=== PATIENT | male | born 1955 | race American Indian/Alaskan Native ===

== ENCOUNTER 2018-03-04 14:59 | Observation (INO) | payer MEDICARE ==
--- NOTE | 2018-03-04 17:42 | Emergency Department Report ---
HPI - General Chief Complaint: Syncope Time Seen by Provider: 03/04/18 17:26 - [facility] HPI: Room 10 The patient is a 62-year-old male presents with the chief complaint of syncope. The patient states he was sitting down when he began to feel dizzy and lost consciousness. Patient denies palpitations, chest pain, shortness of breath, nausea vomiting or pain of any type. Patient currently states he feels "pretty good." Location: [facility] Duration: Just prior to arrival Quality: Dizziness, syncope Severity: Moderate Modifying factors: [see above] Context: [see above] Mode of transportation: [not driving] ED Past Medical Hx - Past Medical History Hx Hypertension: Yes Hx Diabetes: Yes Hx Psychiatric Treatment: Yes Additional medical history: depression. bipolar. Schizophrenia - Surgical History Past Surgical History?: No - Family History Family history: no significant - Social History Smoking Status: Current Every Day Smoker (1/7 per day) Substance Use Type: None - Medications Home Medications: Home Medications Medication Instructions Recorded Confirmed Last Taken Type Ibuprofen [Motrin] 600 mg PO Q8H PRN #60 tablet 12/19/13 Unknown Rx Sulfamethoxazole/Trimethoprim 1 each PO BID #20 tablet 12/19/13 Unknown Rx [Bactrim Ds] ED Review of Systems ROS: Stated complaint: SYNCOPE Other details as noted in HPI Constitutional: no symptoms reported Eyes: denies: eye pain ENT: denies: throat pain Respiratory: denies: shortness of breath Cardiovascular: denies: chest pain, palpitations Endocrine: denies: unexplained weight gain Gastrointestinal: denies: abdominal pain, nausea, vomiting Genitourinary: denies: dysuria Musculoskeletal: denies: back pain Skin: denies: change in color Neurological: denies: headache Physical Exam - Physical Exam Vital Signs: Vital Signs 03/04/18 17:11 Temperature 98.4 F Pulse Rate 50 L Respiratory 18 Rate Blood Pressure 164/77 Blood Pressure 164/77 [Left] O2 Sat by Pulse 100 Oximetry Physical Exam: GENERAL: The patient is well-developed well-nourished male sitting on stretcher not appearing to be in acute distress. [] HEENT: Normocephalic. Atraumatic. (Strabismus: Chronic) . Patient has moist mucous membranes. NECK: Supple. Trachea midline CHEST/LUNGS: Clear to auscultation. There is no respiratory distress noted. HEART/CARDIOVASCULAR: Regular. There is no tachycardia. There is no gallop rub or murmur. ABDOMEN: Abdomen is soft, nontender. Patient has normal bowel sounds. There is no abdominal distention. SKIN: There is no rash. There is no edema. There is no diaphoresis. NEURO: The patient is awake, alert, and oriented. The patient is cooperative. The patient has no focal neurologic deficits. The patient has normal speech. Cranial nerves II through XII grossly intact, no drift MUSCULOSKELETAL: There is no evidence of acute injury. ED Course Vital Signs 03/04/18 17:11 Temperature 98.4 F Pulse Rate 50 L Respiratory 18 Rate Blood Pressure 164/77 Blood Pressure 164/77 [Left] O2 Sat by Pulse 100 Oximetry ED Medical Decision Making - Lab Data Result diagrams: 03/04/18 18:32 03/04/18 18:32 Laboratory Tests 03/04/18 03/04/18 03/04/18 18:32 18:32 18:32 WBC 5.4 RBC 4.21 Hgb 12.7 Hct 37.1 MCV 88 MCH 30 MCHC 34 RDW 13.5 Plt Count 173 Lymph % (Auto) 19.6 [place] % (Auto) 3.2 Eos % (Auto) 0.5 Baso % (Auto) 1.4 Lymph # 1.1 L [place] # 0.2 Eos # 0.0 Baso # 0.1 Seg Neutrophils % 75.3 H Seg Neutrophils # 4.1 PT 13.2 INR 0.95 APTT 32.2 Sodium 138 Potassium 4.8 Chloride 97.8 L Carbon Dioxide 28 Anion Gap 17 BUN 17 Creatinine 1.3 Estimated GFR > 60 BUN/Creatinine Ratio 13 Glucose 99 Calcium 9.0 Total Creatine Kinase 75 CK-MB (CK-2) 1.3 CK-MB (CK-2) Rel Index 1.7 Troponin T < 0.010 TSH Free T4 Plasma/Serum Alcohol 03/04/18 03/04/18 18:32 18:32 WBC RBC Hgb Hct MCV MCH MCHC RDW Plt Count Lymph % (Auto) [place] % (Auto) Eos % (Auto) Baso % (Auto) Lymph # [place] # Eos # Baso # Seg Neutrophils % Seg Neutrophils # PT INR APTT Sodium Potassium Chloride Carbon Dioxide Anion Gap BUN Creatinine Estimated GFR BUN/Creatinine Ratio Glucose Calcium Total Creatine Kinase CK-MB (CK-2) CK-MB (CK-2) Rel Index Troponin T TSH 1.260 Free T4 1.04 Plasma/Serum Alcohol < 0.01 - EKG Data -: EKG Interpreted by Me EKG shows normal: sinus rhythm Rate: bradycardia (50 bpm) - EKG Data When compared to previous EKG there are: previous EKG unavailable Interpretation: nonspecific ST-T wave cary (T-wave inversion in leads 2, 3, aVF, with biphasic T waves in leads V4, V5, V6) - Radiology Data Radiology results: report reviewed (chest x-ray, CT head), image reviewed ( chest x-ray) interpreted by me: Chest x-ray-no focal infiltrates, no pneumothorax [address] [address] XRay Report Signed Patient: ROSAS HODGES MR#: [id number] : 1954 Acct:[id number] Age/Sex: 62 / M ADM Date: 03/04/18 Loc: ED Attending Dr: Ordering Physician: CHERRY MAYES MD Date of Service: 03/04/18 Procedure(s): XR chest 1V ap Accession Number(s): [id number] cc: CHERRY MAYES MD Fluoro Time In Minutes: FINAL REPORT EXAM: XR CHEST 1V AP HISTORY: syncope TECHNIQUE: AP portable view of the chest PRIORS: None. FINDINGS: Lines, tubes, and devices: N/ A Lungs and pleura: Trachea is normal in position. Lungs are clear of infiltrate , pleural effusion, vascular congestion, or pneumothorax. Cardiomediastinal silhouette: Cardiac and mediastinal silhouettes are unremarkable. Other: Bony structures are intact. IMPRESSION: No acute cardiopulmonary process seen. Transcribed By: [facility] Dictated By: MAHI SALGUERO MD Electronically Authenticated By: MAHI SALGUERO MD Signed Date/Time: 03/04/181822 DD/DT: 02/14 TD/TT: 03/04/181822 [address] [address] Cat Scan Report Signed Patient: ROSAS HODGES MR#: [id number] : Acct:[id number] Age/Sex: 62 / M ADM Date: 03/04/18 Loc: ED Attending Dr: Ordering Physician: CHERRY MAYES MD Date of Service: 03/04/18 Procedure(s): CT head/brain wo con Accession Number(s): [id number] cc: CHERRY MAYES MD FINAL REPORT EXAM: CT HEAD/BRAIN WO CON HISTORY: syncope TECHNIQUE: Standard unenhanced CT of the head at 5.0 millimeter axial increments. PRIORS: None. FINDINGS: The ventricular system is normal in size and configuration. There is no evidence for parenchymal volume loss. There is no evidence for mass lesion, mass effect, midline shift, acute intracranial hemorrhage, or acute ischemia/ infarction. No evidence for acute skull fracture is seen. No abnormality in the overlying scalp soft tissues is seen. Visualized paranasal sinuses are clear. There is an incidental 1.3 x 0.9 cm subcutaneous cystic focus overlying the left cheek (axial image 1). This is likely an entity of the skin such as sebaceous cyst. IMPRESSION: No acute intracranial process noted. Subcutaneous cystic focus overlying the left cheek, likely is an entity of the skin such as sebaceous cyst. Transcribed By: [facility] Dictated By: MAHI SALGUERO MD Electronically Authenticated By: MAHI SALGUERO MD Signed Date/Time: 03/04/181843 DD/ 43 TD/TT: 03/04/181843 - Differential Diagnosis syncope, dysrhythmia, ICH, ACS, rhabdomyolysis, Critical care attestation.: If time is entered above; I have spent that time in minutes in the direct care of this critically ill patient, excluding procedure time. ED Disposition Clinical Impression: Syncope Disposition: OP ADMIT IP TO THIS HOSP Is pt being admited?: Yes Does the pt Need Aspirin: Yes Condition: Fair Instructions: Syncope (ED) Referrals: PRIMARY CARE, [Primary Care Provider] - 3-5 Days Time of Disposition: 19:57 (hospitalist paged (Dr Baig))
--- NOTE | 2018-03-04 18:27 | XRay Report ---
FINAL REPORT EXAM: XR CHEST 1V AP HISTORY: syncope TECHNIQUE: AP portable view of the chest PRIORS: None. FINDINGS: Lines, tubes, and devices: N/A Lungs and pleura: Trachea is normal in position. Lungs are clear of infiltrate, pleural effusion, vascular congestion, or pneumothorax. Cardiomediastinal silhouette: Cardiac and mediastinal silhouettes are unremarkable. Other: Bony structures are intact. IMPRESSION: No acute cardiopulmonary process seen.
--- NOTE | 2018-03-04 18:48 | Cat Scan Report ---
FINAL REPORT EXAM: CT HEAD/BRAIN WO CON HISTORY: syncope TECHNIQUE: Standard unenhanced CT of the head at 5.0 millimeter axial increments. PRIORS: None. FINDINGS: The ventricular system is normal in size and configuration. There is no evidence for parenchymal volume loss. There is no evidence for mass lesion, mass effect, midline shift, acute intracranial hemorrhage, or acute ischemia/ infarction. No evidence for acute skull fracture is seen. No abnormality in the overlying scalp soft tissues is seen. Visualized paranasal sinuses are clear. There is an incidental 1.3 x 0.9 cm subcutaneous cystic focus overlying the left cheek (axial image 1). This is likely an entity of the skin such as sebaceous cyst. IMPRESSION: No acute intracranial process noted. Subcutaneous cystic focus overlying the left cheek, likely is an entity of the skin such as sebaceous cyst.
[2018-03-04 18:54] LABS: Basophils # (Auto) 0.1 K/mm3 (0.0-0.1); Basophils % (Auto) 1.4 % (0.0-1.8); Eosinophils % (Auto) 0.5 % (0.0-4.3); Hematocrit 37.1 % (35.5-45.6); Hemoglobin 12.7 gm/dl (11.8-15.2); Lymphocytes # (Auto) 1.1 K/mm3 (1.2-5.4); Lymphocytes % (Auto) 19.6 % (13.4-35.0); Mean Corpuscular HGB Conc 34 % (32-34); Mean Corpuscular Hemoglobin 30 pg (28-32); Mean Corpuscular Volume 88 fl (84-94); Monocytes # (Auto) 0.2 K/mm3 (0.0-0.8); Monocytes % (Auto) 3.2 % (0.0-7.3); Platelet Count 173 K/mm3 (140-440); Red Blood Count 4.21 M/mm3 (3.65-5.03); Red Cell Distribution Width 13.5 % (13.2-15.2)
[2018-03-04 19:06] LABS: INR 0.95 (0.87-1.13)
[2018-03-04 19:07] LABS: Partial Thromboplastin Time 32.2 Sec. (24.2-36.6)
[2018-03-04 19:12] LABS: Creatine Kinase MB 1.3 ng/mL (0.0-4.0)
[2018-03-04 19:16] LABS: BUN/Creatinine Ratio 13; Blood Urea Nitrogen 17 mg/dL (9-20); Hemolysis Index 4
[2018-03-04 19:24] LABS: Free T4 (Free Thyroxine) 1.04 ng/dL (0.76-1.46)
[2018-03-04] MEDS ORDERED: NACL 0.9% 1000 ML 1,000 ML IV ONE (19:28)
[2018-03-04] MEDS ORDERED: ASPIRIN PO ONE (19:57)
[2018-03-04 20:40] LABS: Bilirubin,Urine NEG (Negative); Blood,Urine NEG (Negative); Color,Urine Yellow (Yellow); Hyaline Casts,Urine 4 /LPF; Mucus,Urine FEW /HPF; Protein,Urine <15 mg/dL mg/dL (Negative); WBC,Urine < 1.0 /HPF (0.0-6.0)
--- NOTE | 2018-03-04 21:40 | History and Physical Report ---
History of Present Illness Date of examination: 03/04/18 Date of admission: 03/04/18 Chief complaint: Syncope History of present illness: Patient is a 62-year-old gentleman who lives in a personal skilled nursing with a history of mild mental retardation, hypertension and schizophrenia started complaining of dizziness shortly after his regular edema. He passed out immediately thereafter. EMS was called in. Patient is well noted to have spasms on the rise bilaterally. There was no jerking movements. Patient was therefore brought to the emergency department. Initial episode of syncope lasted for less than 1 minute per his caregiver will give most of the history. Patient was brought to the emergency department with CBC and CMP were normal. Chest x-ray, CT scan of the brain within normal. Admission was therefore requested. Past History Past Medical History: hypertension, hyperlipidemia, other (schizophrenia and bipolar disorder with mild mental retardation) Past Surgical History: No surgical history Social history: smoking, alcohol abuse. denies: prescription drug abuse, IV drug use Family history: CAD Medications and Allergies Allergies Allergy/AdvReac Type Severity Reaction Status Date / Time No Known Allergies Allergy Unverified 12/19/13 16:23 Home Medications Medication Instructions Recorded Confirmed Last Taken Type Ibuprofen [Motrin] 600 mg PO Q8H PRN #60 tablet 12/19/13 03/04/18 Unknown Rx Sulfamethoxazole/Trimethoprim 1 each PO BID #20 tablet 12/19/13 03/04/18 Unknown Rx [Bactrim Ds] FLUoxetine HCL [Fluoxetine HCl] 10 mg PO QAM 03/04/18 03/04/18 Unknown History Lisinopril [Zestril TAB] 30 mg PO QDAY 03/04/18 03/04/18 Unknown History cloNIDine [Catapres] 0.1 mg PO BID 03/04/18 03/04/18 Unknown History risperiDONE [RisperiDONE] 3 mg PO QHS 03/04/18 03/04/18 Unknown History traZODone [Desyrel] 100 mg PO QHS 03/04/18 03/04/18 Unknown History Active Meds: Active Medications Heparin Sodium (Porcine) (Heparin) 5,000 unit SUB-Q Q12HR MIA Exam - Constitutional Vitals: Temp Pulse Resp BP Pulse Ox 98.7 F 74 16 185/74 100 03/04/18 20:00 03/04/18 20:00 03/04/18 20:00 03/04/18 20:00 03/04/18 20:00 Results - Labs CBC & Chem 7: 03/04/18 18:32 03/04/18 18:32 Labs: Abnormal lab results 03/04/18 03/04/18 Range/Units 18:32 18:32 Lymph # 1.1 L (1.2-5.4) K/mm3 Seg Neutrophils % 75.3 H (40.0-70.0) % Chloride 97.8 L (98-107) mmol/L Assessment and Plan Assessment Syncope from Autonomic dysfunction Hypertension, bipolar disorder, history of schizophrenia. Plan Admitted to telemetry Carotid Doppler Orthostatic measurements Optimize blood pressure control Continue with medication for mental health Physical prophylaxis with Lovenox and GI with Pepcid spent in patient care. Laboratory data
[2018-03-04] MEDS ORDERED: CATAPRES PO ONE (22:00)
[2018-03-04] MEDS ORDERED: CATAPRES ONE ×2 (22:01→23:10)
[2018-03-04] MEDS: HEPARIN SUB-Q SCH (22:18)
[2018-03-04] MEDS ORDERED: HEPARIN ONE (22:18)
[2018-03-04] MEDS: CATAPRES PO SCH (23:10)
[2018-03-05] MEDS: RisperDAL PO SCH ×2 (01:20→22:08)
[2018-03-05] MEDS: DESYREL PO SCH ×2 (01:20→21:50)
[2018-03-05 05:39] LABS: Basophils % (Auto) 1.1 % (0.0-1.8); Eosinophils # (Auto) 0.1 K/mm3 (0.0-0.4); Hemoglobin 11.6 gm/dl (11.8-15.2); Lymphocytes # (Auto) 1.3 K/mm3 (1.2-5.4); Lymphocytes % (Auto) 30.8 % (13.4-35.0); Mean Corpuscular HGB Conc 34 % (32-34); Mean Corpuscular Hemoglobin 30 pg (28-32); Mean Corpuscular Volume 88 fl (84-94); Monocytes # (Auto) 0.2 K/mm3 (0.0-0.8); Platelet Count 168 K/mm3 (140-440); Red Blood Count 3.86 M/mm3 (3.65-5.03); Red Cell Distribution Width 13.6 % (13.2-15.2)
[2018-03-05 06:02] LABS: INR 0.98 (0.87-1.13)
[2018-03-05 06:09] LABS: Alanine Aminotransferase 5 units/L (7-56); Albumin 3.8 g/dL (3.9-5); BUN/Creatinine Ratio 14; Blood Urea Nitrogen 14 mg/dL (9-20); Calcium 8.7 mg/dL (8.4-10.2); Hemolysis Index 8
[2018-03-05] MEDS: PROzac PO SCH (09:55)
[2018-03-05] MEDS: HEPARIN SUB-Q SCH ×2 (09:56→21:51)
[2018-03-05] MEDS: ZESTRIL PO SCH (09:56)
[2018-03-05] MEDS: CATAPRES PO SCH ×2 (09:56→21:50)
[2018-03-05] MEDS ORDERED: NON-FORMULARY (Lisinopril [Zestril Tab] 30 MG) PO SCH (10:00)
--- NOTE | 2018-03-05 16:20 | Progress Note ---
Assessment and Plan Assessment and plan: Patient is a 62-year-old gentleman who lives in a personal fci with a history of mild mental retardation, hypertension and schizophrenia started complaining of dizziness shortly after his regular edema. He passed out immediately thereafter. EMS was called in. Patient is well noted to have spasms on the rise bilaterally. There was no jerking movements. Patient was therefore brought to the emergency department. Initial episode of syncope lasted for less than 1 minute per his caregiver will give most of the history. Patient was brought to the emergency department with CBC and CMP were normal. Chest x-ray, CT scan of the brain within normal. Admission was therefore requested. Past History Past Medical History: hypertension, hyperlipidemia, other (schizophrenia and bipolar disorder with mild mental retardation) Syncope from Autonomic dysfunction Htn urgency bipolar disorder, history of schizophrenia. Plan Admitted to telemetry Carotid Doppler optimize bp meds Optimize blood pressure control Continue with medication for mental health Physical prophylaxis with Lovenox and GI with Pepcid spent in patient care. Laboratory data History Interval history: Denies any additional episodes of syncope Review of systems Constitutional: No fevers, no malaise, no joint pains CVS: No chest pain, no orthopnea, no dyspnea on exertion, no pedal edema GI: No abdominal pain, no diarrhea, no vomiting, no constipation Respiratory: No shortness of breath, no wheezing, no coughing Hospitalist Physical - Physical exam Narrative exam: General.: Appears well, no distress, nontoxic HEENT: Moist mucous membranes, extraocular muscles intact, no lymphadenopathy Neck: supple Cardiac: S1-S2 heard Lungs: clear to auscultation bilaterally Abdomen: soft , nontender, nondistended, bowel sounds positive Extremities: no edema clubbing or cyanosis Skin: no rash or lesions Neurologic: no gross focal deficits, patient is mentally retarded, has basic understanding of his illness. But lacks higher level cognitive skills Psych: Calm and cooperative - Constitutional Vitals: Temp Pulse Resp BP Pulse Ox 98.8 F 69 19 122/66 97 03/05/18 12:16 03/05/18 12:16 03/05/18 12:16 03/05/18 12:16 03/05/18 12:16 Results - Labs CBC & Chem 7: 03/05/18 04:44 03/05/18 04:44 Labs: Laboratory Last Values WBC 4.3 K/mm3 (4.5-11.0) L 07/07/18 04:44 RBC 3.86 M/mm3 (3.65-5.03) 03/05/18 04:44 Hgb 11.6 gm/dl (11.8-15.2) L 03/05/18 04:44 Hct 34.0 % (35.5-45.6) L 03/05/18 04:44 MCV 88 fl (84-94) 03/05/18 04:44 MCH 30 pg (28-32) 03/05/18 04:44 MCHC 34 % (32-34) 03/05/18 04:44 RDW 13.6 % (13.2-15.2) 03/05/18 04:44 Plt Count 168 K/mm3 (140-440) 03/05/18 04:44 Lymph % (Auto) 30.8 % (13.4-35.0) 03/05/18 04:44 [place] % (Auto) 5.0 % (0.0-7.3) 03/05/18 04:44 Eos % (Auto) 3.0 % (0.0-4.3) 03/05/18 04:44 Baso % (Auto) 1.1 % (0.0-1.8) 03/05/18 04:44 Lymph # 1.3 K/mm3 (1.2-5.4) 03/05/18 04:44 [place] # 0.2 K/mm3 (0.0-0.8) 03/05/18 04:44 Eos # 0.1 K/mm3 (0.0-0.4) 03/05/18 04:44 Baso # 0.0 K/mm3 (0.0-0.1) 03/05/18 04:44 Seg Neutrophils % 60.1 % (40.0-70.0) 03/05/18 04:44 Seg Neutrophils # 2.6 K/mm3 (1.8-7.7) 03/05/18 04:44 PT 13.5 Sec. (12.2-14.9) 03/05/18 04:44 INR 0.98 (0.87-1.13) 03/05/18 04:44 APTT 32.2 Sec. (24.2-36.6) 03/04/18 18:32 Sodium 138 mmol/L (137-145) 03/05/18 04:44 Potassium 3.9 mmol/L (3.6-5.0) 03/05/18 04:44 Chloride 98.2 mmol/L (98-107) 03/05/18 04:44 Carbon Dioxide 26 mmol/L (22-30) 03/05/18 04:44 Anion Gap 18 mmol/L 03/05/18 04:44 BUN 14 mg/dL (9-20) 03/05/18 04:44 Creatinine 1.0 mg/dL (0.8-1.5) 03/05/18 04:44 Estimated GFR > 60 ml/min 03/05/18 04:44 BUN/Creatinine Ratio 14 % 03/05/18 04:44 Glucose 100 mg/dL (75-100) 03/05/18 04:44 Calcium 8.7 mg/dL (8.4-10.2) 03/05/18 04:44 Phosphorus 2.80 mg/dL (2.5-4.5) 03/05/18 04:44 Magnesium 2.10 mg/dL (1.7-2.3) 03/05/18 04:44 Total Bilirubin 0.30 mg/dL (0.1-1.2) 03/05/18 04:44 AST 11 units/L (5-40) 03/05/18 04:44 ALT 5 units/L (7-56) L 03/05/18 04:44 Alkaline Phosphatase 52 units/L (35-129) 03/05/18 04:44 Total Creatine Kinase 97 units/L (55-170) 03/04/18 23:28 CK-MB (CK-2) 1.3 ng/mL (0.0-4.0) 03/04/18 18:32 CK-MB (CK-2) Rel Index 1.7 (0-4) 03/04/18 18:32 Troponin T < 0.010 ng/mL (0.00-0.029) 03/04/18 18:32 Total Protein 5.9 g/dL (6.3-8.2) L 03/05/18 04:44 Albumin 3.8 g/dL (3.9-5) L 03/05/18 04:44 Albumin/Globulin Ratio 1.8 % 03/05/18 04:44 TSH 1.260 mlU/mL (0.270-4.200) 03/04/18 18:32 Free T4 1.04 ng/dL (0.76-1.46) 03/04/18 18:32 Urine Color Yellow (Yellow) 03/04/18 19:50 Urine Turbidity Clear (Clear) 03/04/18 19:50 Urine pH 5.0 (5.0-7.0) 03/04/18 19:50 Ur Specific [place] 1.018 (1.003-1.030) 03/04/18 19:50 Urine Protein <15 mg/dl mg/dL (Negative) 03/04/18 19:50 Urine Glucose (UA) Neg mg/dL (Negative) 03/04/18 19:50 Urine Ketones 20 mg/dL (Negative) 03/04/18 19:50 Urine Blood Neg (Negative) 03/04/18 19:50 Urine Nitrite Neg (Negative) 03/04/18 19:50 Urine Bilirubin Neg (Negative) 03/04/18 19:50 Urine Urobilinogen 2.0 mg/dL (<2.0) 03/04/18 19:50 Ur Leukocyte Esterase Neg (Negative) 03/04/18 19:50 Urine WBC (Auto) < 1.0 /HPF (0.0-6.0) 03/04/18 19:50 Urine RBC (Auto) 2.0 /HPF (0.0-6.0) 03/04/18 19:50 Hyaline Casts 4 /LPF 03/04/18 19:50 Urine Mucus Few /HPF 03/04/18 19:50 Plasma/Serum Alcohol < 0.01 % (0-0.07) 03/04/18 18:32
--- NOTE | 2018-03-05 19:35 | Discharge Summary ---
Providers - Providers Date of Admission: 03/04/18 21:32 Attending physician: ARIEL ANTUNEZ MD Primary care physician: FRANCHISE MANAGER Hospitalization Condition: Fair Hospital course: Patient is a 62-year-old gentleman who lives in a personal mcc with a history of mild mental retardation, hypertension and schizophrenia started complaining of dizziness shortly after he had a syncopal episode. It was witnessed and there was no head trauma or convulsions. He was admitted to hospital, he had CXR, CTH and Carotid dopplers which were all wnl. Blood pressure medications were optimized given hypertensive urgency. Diagnosis Syncope from Transient Autonomic dysfunction Htn urgency bipolar disorder, history of schizophrenia. Mental retardation Disposition: - TO HOME OR SELFCARE Time spent for discharge: 33 minutes Core Measure Documentation - Palliative Care Palliative Care/ Comfort Measures: Not Applicable - Core Measures Any of the following diagnoses?: none Exam - Constitutional Vitals: Temp Pulse Resp BP Pulse Ox 98.5 F 83 19 190/89 100 03/05/18 18:25 03/05/18 18:25 03/05/18 18:25 03/05/18 18:25 03/05/18 18:25 General appearance: Present: no acute distress, well-nourished - EENT Eyes: Present: PERRL ENT: hearing intact, clear oral mucosa - Neck Neck: Present: supple, normal ROM - Respiratory Respiratory effort: normal Respiratory: bilateral: CTA - Cardiovascular Heart Sounds: Present: S1 & S2. Absent: rub, click - Extremities Extremities: pulses symmetrical, No edema Peripheral Pulses: within normal limits - Abdominal General gastrointestinal: Present: soft, non-tender, non-distended, normal bowel sounds Male genitourinary: Present: normal - Integumentary Integumentary: Present: clear, warm, dry - Musculoskeletal Musculoskeletal: gait normal, strength equal bilaterally - Psychiatric Psychiatric: appropriate mood/affect, no intact judgment & insight - Neurologic Neurologic: CNII-XII intact, moves all extremities Plan Follow up with: PRIMARY CARE, [Primary Care Provider] - 3-5 Days Prescriptions: Valsartan [Diovan] 160 mg PO QDAY #30 tablet
[2018-03-05] MEDS ORDERED: DESYREL PO SCH (23:00)
[2018-03-06] MEDS: HEPARIN SUB-Q SCH (09:48)
[2018-03-06] MEDS: CATAPRES PO SCH (09:49)
[2018-03-06] MEDS: ZESTRIL PO SCH (09:49)
[2018-03-06] MEDS: PROzac PO SCH (09:49)
[2018-03-06] MEDS ORDERED: APRESOLINE IV PRN (11:19)
[2018-03-06] MEDS ORDERED: DIOVAN PO SCH (12:00)
[2018-03-06 16:57] VITALS: BP 151/88
--- NOTE | 2018-03-14 15:48 | Vascular Lab Report ---
CAROTID DUPLEX STUDY: RIGHT PSVEDV CCA PROX:8714 CCA DIST:6612 ICA PROX:4717 ICA MID:[id number] ICA DIST:7124 ECA: 57 VERT: 61 18 LEFT PSVEDV CCA PROX:9315 CCA DIST:7315 ICA PROX:5619 ICA MID:9425 ICA DIST:[id number] ECA: 100 VERT: 65 19 REASON FOR EXAM: Stroke. COMMENTS ON THE RIGHT: Doppler frequency analysis is consistent with 16 to 49 percent diameter reduction of the internal carotid artery. A small amount of plaque is seen. The common carotid artery is patent. The external carotid artery is patent. The vertebral artery has antegrade flow. COMMENTS ON THE LEFT: Doppler frequency analysis is consistent with 16 to 49 percent diameter reduction of the internal carotid artery. A moderate amount of plaque is seen. The common carotid artery is patent. The external carotid artery is patent. The vertebral artery has antegrade flow. IMPRESSION: Less than 50% diameter reduction in the internal carotid arteries bilaterally. Consider repeat carotid artery duplex in 12 months.
== END 2018-03-06 17:20 | disposition home or self-care (01) ==
LOC: ED 14:59 → INTOOBSV 21:32 → 4A 21:32 → 3A 22:36 → UNDODISIN 03-05 20:34
PROVIDERS: ADMIT Family Medicine; ATTEND Internal Medicine
DX: R55 Syncope and collapse (principal); G90.8 Other disorders of autonomic nervous system; I16.0 Hypertensive urgency; I10 Essential (primary) hypertension; E78.5 Hyperlipidemia, unspecified; E11.9 Type 2 diabetes mellitus without complications; F20.9 Schizophrenia, unspecified; F79 Unspecified intellectual disabilities; F31.9 Bipolar disorder, unspecified; F17.200 Nicotine dependence, unspecified, uncomplicated
CPT/HCPCS: 36415; 70450; 71045; 80048; 80053; 81001; 82550; 82553; 83735; 84100; 84439; 84443; 84484; 85025; 85610; 85730; 93005; 93010; 93306; 93880; 96361; 96372; 96374; 99285; 99406; G0378; G0480; J0360; J1644; J7030; 80320; 96360

== ENCOUNTER 2018-03-17 11:50 | Inpatient (IN) | payer MEDICARE ==
--- NOTE | 2018-03-17 19:47 | Emergency Department Report ---
HPI - General Chief Complaint: Dizziness Time Seen by Provider: 03/17/18 19:17 - HPI HPI: Room 18 The patient is a 62-year-old male presenting with a chief complaint of syncope. The patient was sitting down at a table at a gas station when he states he "dizzy and slumped over losing consciousness. Technical Sales Advisor states the patient was unresponsive for several seconds. The patient denied having any type of pain prior to passing out palpitations or shortness of breath. Patient denies any history of fever or nausea or vomiting. When asked how he is feeling currently the patient replies he feels "good." Location: [facility] Duration: [See above] Quality: Syncope Severity: Moderate Modifying factors: [see above] Context: [see above] Mode of transportation: [not driving] ED Past Medical Hx - Past Medical History Hx Hypertension: Yes Hx Diabetes: Yes Hx Psychiatric Treatment: Yes Additional medical history: depression. bipolar. Schizophrenia - Surgical History Past Surgical History?: No - Family History Family history: no significant - Social History Smoking Status: Current Every Day Smoker (4 cigarettes daily) Substance Use Type: None - Medications Home Medications: Home Medications Medication Instructions Recorded Confirmed Last Taken Type Ibuprofen [Motrin 600 MG tab] 600 mg PO Q8H PRN #60 tablet 12/19/13 03/04/18 Unknown Rx Sulfamethoxazole/Trimethoprim 1 each PO BID #20 tablet 12/19/13 03/04/18 Unknown Rx [Bactrim DS TAB] FLUoxetine HCL [Fluoxetine HCl] 10 mg PO QAM 03/04/18 03/04/18 Unknown History cloNIDine [Catapres] 0.1 mg PO BID 03/04/18 03/04/18 Unknown History risperiDONE [RisperiDONE] 3 mg PO QHS 03/04/18 03/04/18 Unknown History traZODone [Desyrel] 100 mg PO QHS 03/04/18 03/04/18 Unknown History Valsartan [Diovan] 160 mg PO QDAY #30 tablet 03/06/18 Unknown Rx ED Review of Systems ROS: Stated complaint: DIZZINESS Other details as noted in HPI Constitutional: denies: fever Eyes: denies: eye pain ENT: denies: throat pain Respiratory: denies: shortness of breath Cardiovascular: denies: chest pain, palpitations Endocrine: denies: unexplained weight loss Gastrointestinal: denies: abdominal pain, nausea, vomiting Genitourinary: denies: dysuria Musculoskeletal: denies: back pain Skin: denies: change in color Neurological: other (syncope). denies: headache Physical Exam - Physical Exam Vital Signs: Vital Signs 03/17/18 03/17/18 03/17/18 11:55 11:58 13:45 Temperature 98 F 97.4 F L Pulse Rate 60 50 L Respiratory 16 18 18 Rate Blood Pressure 95/58 Blood Pressure 142/68 [Right] O2 Sat by Pulse 97 99 98 Oximetry 03/17/18 18:02 Temperature 97.7 F Pulse Rate 64 Respiratory 18 Rate Blood Pressure Blood Pressure 133/65 [Right] O2 Sat by Pulse 99 Oximetry Physical Exam: GENERAL: The patient is well-developed well-nourished male lying on stretcher not appearing to be in acute distress. [] HEENT: Normocephalic. Atraumatic. Strabismus (chronic). Patient has moist mucous membranes. NECK: Supple. No meningitic signs are noted. There is no adenopathy noted. CHEST/LUNGS: Clear to auscultation. There is no respiratory distress noted. HEART/CARDIOVASCULAR: Regular. There is no tachycardia. There is no gallop rub or murmur. ABDOMEN: Abdomen is soft, nontender. Patient has normal bowel sounds. There is no abdominal distention. SKIN: There is no rash. There is no edema. There is no diaphoresis. NEURO: The patient is awake, alert, and oriented. The patient is cooperative. The patient has no focal neurologic deficits. The patient has normal speech. Cranial nerves II through XII grossly intact, no drift. Moves all extremities well. Normal sensation throughout MUSCULOSKELETAL: There is no evidence of acute injury. ED Course Vital Signs 03/17/18 03/17/18 03/17/18 11:55 11:58 13:45 Temperature 98 F 97.4 F L Pulse Rate 60 50 L Respiratory 16 18 18 Rate Blood Pressure 95/58 Blood Pressure 142/68 [Right] O2 Sat by Pulse 97 99 98 Oximetry 03/17/18 18:02 Temperature 97.7 F Pulse Rate 64 Respiratory 18 Rate Blood Pressure Blood Pressure 133/65 [Right] O2 Sat by Pulse 99 Oximetry ED Medical Decision Making - Lab Data Result diagrams: 03/17/18 19:49 03/17/18 19:49 Laboratory Tests 03/17/18 03/17/18 03/17/18 19:49 19:49 19:49 WBC 5.0 RBC 3.74 Hgb 11.7 L Hct 33.0 L MCV 88 MCH 31 MCHC 36 H RDW 14.1 Plt Count 205 Lymph % (Auto) 30.4 Hodgeman % (Auto) 7.3 Eos % (Auto) 2.0 Baso % (Auto) 0.8 Lymph # 1.5 Hodgeman # 0.4 Eos # 0.1 Baso # 0.0 Seg Neutrophils % 59.5 Seg Neutrophils # 2.9 D-Dimer 351.20 H Sodium 137 Potassium 4.4 Chloride 100.2 Carbon Dioxide 30 Anion Gap 11 BUN 14 Creatinine 1.4 Estimated GFR > 60 BUN/Creatinine Ratio 10 Glucose 87 Calcium 8.8 Magnesium 2.90 H Total Creatine Kinase 79 CK-MB (CK-2) 1.1 CK-MB (CK-2) Rel Index 1.3 Troponin T < 0.010 TSH Free T4 03/17/18 19:49 WBC RBC Hgb Hct MCV MCH MCHC RDW Plt Count Lymph % (Auto) Hodgeman % (Auto) Eos % (Auto) Baso % (Auto) Lymph # Hodgeman # Eos # Baso # Seg Neutrophils % Seg Neutrophils # D-Dimer Sodium Potassium Chloride Carbon Dioxide Anion Gap BUN Creatinine Estimated GFR BUN/Creatinine Ratio Glucose Calcium Magnesium Total Creatine Kinase CK-MB (CK-2) CK-MB (CK-2) Rel Index Troponin T TSH 1.630 Free T4 0.98 - EKG Data -: EKG Interpreted by Ok EKG shows normal: sinus rhythm Rate: bradycardia (47 bpm) - EKG Data When compared to previous EKG there are: no significant change Interpretation: unchanged when compared t (03/04/2018) - Radiology Data Radiology results: report reviewed (CT head, CT chest), image reviewed (CT head , CT chest) [facility] [address] [place] [address] Cat Scan Report Signed Patient: ROSAS HODGES MR#: [id number] : 1955 Acct:[id number] Age/Sex: 62 / M ADM Date: 03/17/18 Loc: ED Attending Dr: Ordering Physician: CHERRY MAYES MD Date of Service: 03/17/18 Procedure(s): CT head/brain wo con Accession Number(s): [id number] cc: CHERRY MAYES MD FINAL REPORT PROCEDURE: CT HEAD/BRAIN WO CON TECHNIQUE: Computerized tomography of the head was performed without contrast material. HISTORY: syncope COMPARISON: 03/04/2018 FINDINGS: Skull and scalp: Normal. Paranasal sinuses: Normal. Ventricles and subarachnoid spaces: Normal. Cerebrum: No evidence of hemorrhage, acute infarction or mass . Cerebellum and brainstem: No evidence of hemorrhage, acute infarction or mass. Vasculature: Normal. Comments: None. IMPRESSION: Unremarkable study Transcribed By: [facility] Dictated By: LISA COX Electronically Authenticated By: LISA COX Signed Date/Time: 03/17/182052 [facility] [address] [id number] Cat Scan Report Signed Patient: ROSAS HODGES MR#: [id number] : 1955 Acct:[id number] Age/Sex: 62 / M ADM Date: 03/17/18 Loc: ED Attending Dr: Ordering Physician: CHERRY MAYES MD Date of Service: 03/17/18 Procedure(s): CT angio chest Accession Number(s): [id number] cc: CHERRY MAYES MD FINAL REPORT PROCEDURE: CT ANGIO CHEST TECHNIQUE: Computerized tomographic angiography of the chest was performed after the IV injection of iodinated nonionic contrast including image processing. The image data was postprocessed using 2-dimensional multiplanar reformatted (MPR) and 3-dimensional (MIP and/or volume rendered) techniques. HISTORY: syncope COMPARISON: No prior studies are available for comparison. FINDINGS: Heart and pericardium: Coronary arterial calcification is noted.. Thoracic aorta: Normal. Pulmonary vasculature: Normal. Lymph nodes: No enlarged thoracic lymph nodes. Lungs: Normal. Pleural space: Trace left pleural effusion is identified.. Musculoskeletal structures: No significant abnormality. Upper abdominal structures: No significant abnormality. IMPRESSION: No evidence of pulmonary embolism No acute pulmonary process Trace left pleural effusion Coronary arterial calcification Transcribed By: [facility] Dictated By: LISA COX Electronically Authenticated By: LISA COX Signed Date/Time: 03/17/182309 DD/ 09 TD/TT: 03/17/182309 DD/ 52 TD/TT: 03/17/182052 - Differential Diagnosis syncope, dysrhythmia, hypotension, bradycardia Critical care attestation.: If time is entered above; I have spent that time in minutes in the direct care of this critically ill patient, excluding procedure time. ED Disposition Clinical Impression: Syncope, Bradycardia Disposition: OP ADMIT IP TO THIS HOSP Is pt being admited?: Yes Does the pt Need Aspirin: Yes Condition: Fair Instructions: Syncope (ED) Referrals: PRIMARY CARE,MD [Primary Care Provider] - 3-5 Days Time of Disposition: 23:41 (hospitalist paged (Dr Woods))
[2018-03-17 20:05] LABS: Hemoglobin 11.7 gm/dl (11.8-15.2); Mean Corpuscular HGB Conc 36 % (32-34); Mean Corpuscular Hemoglobin 31 pg (28-32); Mean Corpuscular Volume 88 fl (84-94); Platelet Count 205 K/mm3 (140-440); Red Blood Count 3.74 M/mm3 (3.65-5.03); Red Cell Distribution Width 14.1 % (13.2-15.2)
[2018-03-17 20:12] LABS: Basophils % (Auto) 0.8 % (0.0-1.8); Eosinophils # (Auto) 0.1 K/mm3 (0.0-0.4); Lymphocytes # (Auto) 1.5 K/mm3 (1.2-5.4); Lymphocytes % (Auto) 30.4 % (13.4-35.0); Monocytes # (Auto) 0.4 K/mm3 (0.0-0.8); Monocytes % (Auto) 7.3 % (0.0-7.3)
[2018-03-17 20:30] LABS: Creatine Kinase MB 1.1 ng/mL (0.0-4.0)
[2018-03-17 20:32] LABS: BUN/Creatinine Ratio 10; Blood Urea Nitrogen 14 mg/dL (9-20); Calcium 8.8 mg/dL (8.4-10.2); Hemolysis Index 2
[2018-03-17 20:42] LABS: Free T4 (Free Thyroxine) 0.98 ng/dL (0.76-1.46)
--- NOTE | 2018-03-17 20:58 | Cat Scan Report ---
FINAL REPORT PROCEDURE: CT HEAD/BRAIN WO CON TECHNIQUE: Computerized tomography of the head was performed without contrast material. HISTORY: syncope COMPARISON: 03/04/2018 FINDINGS: Skull and scalp: Normal. Paranasal sinuses: Normal. Ventricles and subarachnoid spaces: Normal. Cerebrum: No evidence of hemorrhage, acute infarction or mass . Cerebellum and brainstem: No evidence of hemorrhage, acute infarction or mass. Vasculature: Normal. Comments: None. IMPRESSION: Unremarkable study
--- NOTE | 2018-03-17 23:14 | Cat Scan Report ---
FINAL REPORT PROCEDURE: CT ANGIO CHEST TECHNIQUE: Computerized tomographic angiography of the chest was performed after the IV injection of iodinated nonionic contrast including image processing. The image data was postprocessed using 2-dimensional multiplanar reformatted (MPR) and 3-dimensional (MIP and/or volume rendered) techniques. HISTORY: syncope COMPARISON: No prior studies are available for comparison. FINDINGS: Heart and pericardium: Coronary arterial calcification is noted.. Thoracic aorta: Normal. Pulmonary vasculature: Normal. Lymph nodes: No enlarged thoracic lymph nodes. Lungs: Normal. Pleural space: Trace left pleural effusion is identified.. Musculoskeletal structures: No significant abnormality. Upper abdominal structures: No significant abnormality. IMPRESSION: No evidence of pulmonary embolism No acute pulmonary process Trace left pleural effusion Coronary arterial calcification
[2018-03-17] MEDS ORDERED: ASPIRIN PO ONE (23:42)
[2018-03-18] MEDS ORDERED: SODIUM CHLORIDE FLUSH SYRINGE 10 ML IV PRN (01:10)
[2018-03-18] MEDS ORDERED: TYLENOL PO PRN (01:10)
[2018-03-18] MEDS ORDERED: ZOFRAN IV PRN (01:10)
--- NOTE | 2018-03-18 02:33 | History and Physical Report ---
History of Present Illness Date of examination: 03/18/18 Date of admission: 03/18/18 01:10 Chief complaint: "I passed out" History of present illness: Patient is a 62-year-old -Russian male with history of hypertension and syncope, who presented to the ED on account of a syncopal episode. It was reported that the patient was sitting down at a table in a gas station when he felt dizzy and slumped over. His caregiver stated that he was unresponsive for a few seconds. No reported history of seizure activity. He denies headaches, fever, chills, cough, chest pain, shortness of breath or palpitations. No abdominal pain, constipation or diarrhea. Of note, patient was admitted for syncope about 2 weeks ago during which he had carotid Doppler ultrasound which showed less than 50% stenosis bilaterally. He also had echocardiogram done which showed 50-55% ejection fraction with grade 1 diastolic dysfunction. In addition, he stated that he recently started taking the clonidine for his high blood pressure. Past History Past Medical History: diabetes, hypertension, other (bipolar disorder, schizophrenia) Past Surgical History: No surgical history Social history: smoking (has been smoking for 50yrs. He denies alcohol or illicit drug use) Family history: other (reviewed and noncontributory) Medications and Allergies Allergies Allergy/AdvReac Type Severity Reaction Status Date / Time No Known Allergies Allergy Unverified 12/19/13 16:23 Home Medications Medication Instructions Recorded Confirmed Last Taken Type Ibuprofen [Motrin 600 MG tab] 600 mg PO Q8H PRN #60 tablet 12/19/13 03/18/18 Unknown Rx FLUoxetine HCL [Fluoxetine HCl] 10 mg PO QAM 03/04/18 03/18/18 03/17/18 History cloNIDine [Catapres] 0.1 mg PO BID 03/04/18 03/18/18 03/17/18 History risperiDONE [RisperiDONE] 3 mg PO QHS 03/04/18 03/18/18 03/16/18 History traZODone [Desyrel] 100 mg PO QHS 03/04/18 03/18/18 03/16/18 History Lisinopril [Zestril] 30 mg PO DAILY 03/18/18 03/18/18 03/17/18 History Active Meds: Active Medications Acetaminophen (Tylenol) 650 mg PO Q4H PRN PRN Reason: Pain MILD(1-3)/Fever >100.5/RAMÍREZ Enoxaparin Sodium (Lovenox) 40 mg SUB-Q QDAY MIA Hydralazine HCl (Apresoline) 10 mg IV Q6H PRN PRN Reason: Blood Pressure Ondansetron HCl (Zofran) 4 mg IV Q8H PRN PRN Reason: Nausea And Vomiting Sodium Chloride (Sodium Chloride Flush Syringe 10 Ml) 10 ml IV BID MIA Sodium Chloride (Sodium Chloride Flush Syringe 10 Ml) 10 ml IV PRN PRN PRN Reason: LINE FLUSH Review of Systems All systems: negative (except as documented in the HPI, all other systems were reviewed and negative) Exam - Constitutional Vitals: Temp Pulse Resp BP Pulse Ox 97.7 F 64 18 133/65 99 03/17/18 18:02 03/17/18 18:02 03/17/18 18:02 03/17/18 18:02 03/17/18 18:02 General appearance: Present: no acute distress, well-nourished - EENT Eyes: Present: PERRL, EOM intact ENT: hearing intact, clear oral mucosa - Neck Neck: Present: supple, normal ROM - Respiratory Respiratory effort: normal Respiratory: bilateral: CTA - Cardiovascular Rhythm: regular Heart Sounds: Present: S1 & S2. Absent: rub, click - Extremities Extremities: No edema Peripheral Pulses: within normal limits - Abdominal General gastrointestinal: Present: soft, non-tender, non-distended, normal bowel sounds - Integumentary Integumentary: Present: clear, warm, dry - Musculoskeletal Musculoskeletal: gait normal, strength equal bilaterally - Neurologic Neurologic: CNII-XII intact, moves all extremities Results - Labs CBC & Chem 7: 03/17/18 19:49 03/17/18 19:49 Labs: Laboratory Last Values WBC 5.0 K/mm3 (4.5-11.0) 03/17/18 19:49 RBC 3.74 M/mm3 (3.65-5.03) 03/17/18 19:49 Hgb 11.7 gm/dl (11.8-15.2) L 18 19:49 Hct 33.0 % (35.5-45.6) L 03/17/18 19:49 MCV 88 fl (84-94) 03/17/18 19:49 MCH 31 pg (28-32) 03/17/18 19:49 MCHC 36 % (32-34) H 03/17/18 19:49 RDW 14.1 % (13.2-15.2) 18 19:49 Plt Count 205 K/mm3 (140-440) 03/17/18 19:49 Lymph % (Auto) 30.4 % (13.4-35.0) 03/17/18 19:49 Gray % (Auto) 7.3 % (0.0-7.3) 03/17/18 19:49 Eos % (Auto) 2.0 % (0.0-4.3) 03/17/18 19:49 Baso % (Auto) 0.8 % (0.0-1.8) 03/17/18 19:49 Lymph # 1.5 K/mm3 (1.2-5.4) 03/17/18 19:49 Gray # 0.4 K/mm3 (0.0-0.8) 03/17/18 19:49 Eos # 0.1 K/mm3 (0.0-0.4) 03/17/18 19:49 Baso # 0.0 K/mm3 (0.0-0.1) 03/17/18 19:49 Seg Neutrophils % 59.5 % (40.0-70.0) 03/17/18 19:49 Seg Neutrophils # 2.9 K/mm3 (1.8-7.7) 03/17/18 19:49 D-Dimer 351.20 ng/mlDDU (0-234) H 03/17/18 19:49 Sodium 137 mmol/L (137-145) 03/17/18 19:49 Potassium 4.4 mmol/L (3.6-5.0) 03/17/18 19:49 Chloride 100.2 mmol/L (98-107) 03/17/18 19:49 Carbon Dioxide 30 mmol/L (22-30) 03/17/18 19:49 Anion Gap 11 mmol/L 03/17/18 19:49 BUN 14 mg/dL (9-20) 03/17/18 19:49 Creatinine 1.4 mg/dL (0.8-1.5) 07/19/18 19:49 Estimated GFR > 60 ml/min 03/17/18 19:49 BUN/Creatinine Ratio 10 % 03/17/18 19:49 Glucose 87 mg/dL (75-100) 03/17/18 19:49 Calcium 8.8 mg/dL (8.4-10.2) 03/17/18 19:49 Magnesium 2.90 mg/dL (1.7-2.3) H 03/17/18 19:49 Total Creatine Kinase 79 units/L (55-170) 03/17/18 19:49 CK-MB (CK-2) 1.1 ng/mL (0.0-4.0) 03/17/18 19:49 CK-MB (CK-2) Rel Index 1.3 (0-4) 03/17/18 19:49 Troponin T < 0.010 ng/mL (0.00-0.029) 03/17/18 19:49 TSH 1.630 mlU/mL (0.270-4.200) 03/17/18 19:49 Free T4 0.98 ng/dL (0.76-1.46) 03/17/18 19:49 Assessment and Plan Assessment and plan: Recurrent syncope -Probably secondary to clonidine use -Carotid Doppler ultrasound done on 03/04/18 showed less than 50% stenoses bilaterally -Echocardiogram done on 03/06/18 showed EF of 50-55% with grade 1 diastolic dysfunction -Will order EEG to assess for seizure Sinus bradycardia -Likely secondary to clonidine use -Will monitor pt on telemetry and hold his home clonidine Elevated d-dimer -CT chest negative for PE Hypertension -Will place patient on when necessary IV hydralazine History of bipolar disorder and schizophrenia -Resume home medications Prophylaxis -DVT prophylaxis with SCD 35 minutes spent coordinating care
[2018-03-18] MEDS ORDERED: D50W (25GM) Syringe IV PRN (02:51)
[2018-03-18] MEDS: RisperDAL PO SCH ×2 (03:54→23:03)
[2018-03-18] MEDS: DESYREL PO SCH ×2 (03:54→23:03)
[2018-03-18] MEDS: HumuLIN R SUB-Q SCH ×4 (09:47→23:14)
[2018-03-18] MEDS: ZESTRIL PO SCH (10:24)
[2018-03-18] MEDS: PROzac PO SCH (10:24)
[2018-03-18] MEDS: LOVENOX SUB-Q SCH (10:31)
[2018-03-18] MEDS: SODIUM CHLORIDE FLUSH SYRINGE 10 ML IV SCH ×2 (10:32→23:04)
[2018-03-18] MEDS: APRESOLINE IV PRN ×2 (18:37→23:12)
--- NOTE | 2018-03-18 18:42 | Event Note ---
Date: 03/18/18 Patient seen and examined medical records reviewed No new events reported by the nursing staff Admitted with syncope and bradycardia Patient feels better no dizziness Vital signs reviewed, stable Workup so far negative CTA chest; no PE, no acute pulmonary process Trace left pleural effusion, coronary artery calcification CT head; negative Patient had negative syncope workup 10 days ago Physical therapy occupational therapy, DC home tomorrow with home health and home PT
[2018-03-18] MEDS ORDERED: APRESOLINE IV ONE (23:08)
[2018-03-19] MEDS ORDERED: NORVASC PO SCH (00:28)
[2018-03-19] MEDS ORDERED: APRESOLINE PO SCH ×2 (01:00→08:00)
[2018-03-19] MEDS: HumuLIN R SUB-Q SCH (08:13)
--- NOTE | 2018-03-19 08:18 | Discharge Summary ---
Providers - Providers Date of Admission: 03/18/18 01:10 Date of discharge: 03/19/18 Attending physician: KILO MEDLEY 03/18/18 14:50 Physical Therapy Evaluation and Treat [CONS] Routine Comment: Reason For Exam: syncope Primary care physician: [employer] Hospitalization Reason for admission: syncope Condition: Fair Pertinent studies: Head CT; no acute abnormality noted CTA chest; negative for PE, no acute pulmonary process trace left pleural effusion coronary arterial calcification Hospital course: Very pleasant 62-year-old -Malt[place] male patient with significant history of hypertension recurrent episodes of syncope was admitted through emergency room with a syncopal episode, Patient is being cared by his caregiver, initially evaluated and admitted to the hospital, had syncope workup, Patient was admitted 2 weeks ago with similar symptoms when he was extensively evaluated and the workup was negative, Patient also noted to have mild bradycardia probably secondary to clonidine, which was held, received physical therapy, patient ambulated well, Did not have any episodes of dizziness to her syncope Today he is comfortable and ambulatory without support, vital signs are stable, Denies any headache dizziness weakness or numbness Physical exam prior to discharge is unremarkable Patient strongly advised to follow fall precautions Advised to use cane or walker as needed Patient also advised to see private neurologist for further evaluation should he have recurrent episodes of syncope Patient verbalized understanding Patient is hemodynamically and clinically stable at discharge Discharge diagnosis; --Recurrent syncope/autonomic imbalance --Hypertension --Sinus bradycardia; resolved --Bipolar disorder --Schizophrenia --Elevated d-dimer is negative P Disposition: DC-01 TO HOME OR SELFCARE Time spent for discharge: 32 min Core Measure Documentation - Palliative Care Palliative Care/ Comfort Measures: Not Applicable - Core Measures Any of the following diagnoses?: none Exam - Constitutional Vitals: Temp Pulse Resp BP Pulse Ox 98.5 F 88 18 154/74 94 03/19/18 05:53 03/19/18 05:53 03/19/18 05:53 03/19/18 05:53 03/19/18 05:53 General appearance: Present: no acute distress, well-nourished - EENT Eyes: Present: PERRL, EOM intact - Neck Neck: Present: supple, normal ROM - Respiratory Respiratory effort: normal Respiratory: bilateral: diminished, negative: rales, rhonchi, wheezing - Cardiovascular Rhythm: regular Heart Sounds: Present: S1 & S2 - Extremities Extremities: no ischemia, No edema Peripheral Pulses: within normal limits - Abdominal General gastrointestinal: Present: soft, non-tender, non-distended, normal bowel sounds - Integumentary Integumentary: Present: clear, warm - Musculoskeletal Musculoskeletal: strength equal bilaterally, generalized weakness - Psychiatric Psychiatric: appropriate mood/affect, cooperative - Neurologic Neurologic: CNII-XII intact, moves all extremities Plan Activity: advance as tolerated, fall precautions Diet: low salt Additional Instructions: Fall precautions. Do not take clonidine[causing bradycardia/syncope] Follow up with: PRIMARY CARE, [Primary Care Provider] - 3-5 Days Prescriptions: amLODIPine [Norvasc] 10 mg PO QDAY@2200 #30 tablet hydrALAZINE [Apresoline TAB] 50 mg PO Q8H #90 tablet
[2018-03-19] MEDS: PROzac PO SCH (10:35)
[2018-03-19] MEDS: LOVENOX SUB-Q SCH (10:35)
[2018-03-19] MEDS: SODIUM CHLORIDE FLUSH SYRINGE 10 ML IV SCH (10:36)
[2018-03-19] MEDS: ZESTRIL PO SCH (10:36)
[2018-03-19 10:42] VITALS: BP 160/67
== END 2018-03-19 11:55 | disposition home or self-care (01) | DRG 74 ==
LOC: ED 11:50 → 3A 03-18 01:10
PROVIDERS: ADMIT Internal Medicine; ATTEND Internal Medicine
DX: G90.8 Other disorders of autonomic nervous system (principal); R00.1 Bradycardia, unspecified; F31.9 Bipolar disorder, unspecified; R55 Syncope and collapse; F20.9 Schizophrenia, unspecified; T46.5X5A Adverse effect of other antihypertensive drugs, initial encounter; I10 Essential (primary) hypertension; E11.9 Type 2 diabetes mellitus without complications; F17.200 Nicotine dependence, unspecified, uncomplicated; F17.210 Nicotine dependence, cigarettes, uncomplicated; Y92.89 Other specified places as the place of occurrence of the external cause; Z79.899 Other long term (current) drug therapy
CPT/HCPCS: 36415; 70450; 71275; 80048; 82550; 82553; 82962; 83735; 84439; 84443; 84484; 85025; 85379; 93005; 93010; 95819; J0360; J1650; Q9967

== ENCOUNTER 2021-03-01 17:35 | Emergency (ER) | payer MEDICARE ==
[2021-03-01] MEDS ORDERED: ASPIRIN 81 MG TAB CHEW PO ONE (18:02)
--- NOTE | 2021-03-01 18:08 | Emergency Department Report ---
ED Chest Pain HPI - General Chief Complaint: Chest Pain Stated Complaint: CHEST PAIN Time Seen by Provider: 03/01/21 18:02 Source: patient, interpreter deaf Mode of arrival: Stretcher Limitations: No Limitations - History of Present Illness Initial Comments: Patient is 65 years old male with history of hypertension. Patient brought to the emergency room via EMS from a local present for evaluation of chest pain. Patient stated that his chest pain started 7 days ago on and off, left sided, sharp with no radiation. Patient rated his pain as 3 out of 10. Patient is also complaining of abdominal pain and he think that he is constipated. Describes his pain as fullness and diffuse. Patient denied any nausea or vomiting or diarrhea. Patient also denied any fever or chills. Patient also complaining of visual acuity problems as been going on for more than 1 year and he would like the ER to check it. MD Complaint: chest pain -: days(s) (7) Onset: during rest Pain Location: left chest Pain Radiation: none Severity scale (0 -10): 0 Quality: sharp Consistency: intermittent Other Symptoms: cough - Related Data Previous Rx's Medication Instructions Recorded Last Taken Type AtorvaSTATin [Lipitor] 20 mg PO QHS #30 tablet 07/06/18 Unknown Rx FLUoxetine HCL [Fluoxetine HCl] 10 mg PO QAM #30 capsule 07/06/18 Unknown Rx Losartan Potassium 100 mg PO DAILY #30 tablet 07/06/18 Unknown Rx amLODIPine 10 mg PO QDAY@2200 #30 tablet 07/06/18 Unknown Rx cloNIDine [Catapres] 0.1 mg PO BID #60 tablet 07/06/18 Unknown Rx hydrALAZINE [Apresoline TAB] 50 mg PO BID 30 Days tablet 07/06/18 Unknown Rx risperiDONE [RisperiDONE] 4 mg PO QHS 30 Days #30 tablet 07/06/18 Unknown Rx traZODone [Desyrel] 10 mg PO QHS #30 tablet 07/06/18 Unknown Rx Allergies Allergy/AdvReac Type Severity Reaction Status Date / Time No Known Allergies Allergy Unverified 12/19/13 16:23 Heart Score - HEART Score History: Moderately suspicious EKG: Non-specific Age: > 65 Risk factors: 1-2 risk factors Troponin: < normal limit HEART Score: 5 - EKG Read Time Time EKG Completed: 18:02 EKG Read Time: 18:02 - Critical Actions Critical Actions: 4-6 pts:12-16.6% risk of adverse cardiac event. Should be admitted ED Review of Systems ROS: Stated complaint: CHEST PAIN Other details as noted in HPI Comment: All other systems reviewed and negative Constitutional: denies: chills, fever Cardiovascular: chest pain Gastrointestinal: denies: abdominal pain, nausea, vomiting Musculoskeletal: denies: back pain Neurological: denies: headache, weakness ED Past Medical Hx - Past Medical History Hx Hypertension: Yes Hx Diabetes: Yes Hx Psychiatric Treatment: Yes Hx HIV: No Additional medical history: depression. bipolar. Schizophrenia. Strabismus - Social History Smoking Status: Former Smoker - Medications Home Medications: Home Medications Medication Instructions Recorded Confirmed Last Taken Type AtorvaSTATin [Lipitor] 20 mg PO QHS #30 tablet 07/06/18 Unknown Rx FLUoxetine HCL [Fluoxetine HCl] 10 mg PO QAM #30 capsule 07/06/18 Unknown Rx Losartan Potassium 100 mg PO DAILY #30 tablet 07/06/18 Unknown Rx amLODIPine 10 mg PO QDAY@2200 #30 tablet 07/06/18 Unknown Rx cloNIDine [Catapres] 0.1 mg PO BID #60 tablet 07/06/18 Unknown Rx hydrALAZINE [Apresoline TAB] 50 mg PO BID 30 Days tablet 07/06/18 Unknown Rx risperiDONE [RisperiDONE] 4 mg PO QHS 30 Days #30 tablet 07/06/18 Unknown Rx traZODone [Desyrel] 10 mg PO QHS #30 tablet 07/06/18 Unknown Rx ED Physical Exam - General Limitations: No Limitations General appearance: alert, in no apparent distress - Head Head exam: Present: atraumatic, normocephalic, normal inspection - Eye Eye exam: Present: normal appearance - ENT ENT exam: Present: normal exam, normal orophraynx, mucous membranes moist - Neck Neck exam: Present: normal inspection, full ROM. Absent: tenderness, meningismus - Respiratory Respiratory exam: Present: normal lung sounds bilaterally - Cardiovascular Cardiovascular Exam: Present: regular rate, normal rhythm, normal heart sounds - GI/Abdominal GI/Abdominal exam: Present: soft, normal bowel sounds. Absent: distended, tenderness, guarding, rebound, rigid, organomegaly, mass, bruit, pulsatile mass, hernia - Extremities Exam Extremities exam: Present: normal inspection, full ROM, normal capillary refill. Absent: tenderness - Back Exam Back exam: Present: normal inspection, full ROM. Absent: CVA tenderness (R), CVA tenderness (L) - Neurological Exam Neurological exam: Present: alert, oriented X3, CN II-XII intact - Psychiatric Psychiatric exam: Present: normal mood - Skin Skin exam: Present: warm, intact, normal color ED Course Vital Signs 03/01/21 03/01/21 03/01/21 17:57 19:12 19:13 Temperature 98.6 F Pulse Rate 95 H 112 H 108 H Respiratory 18 20 19 Rate Blood Pressure 117/66 117/66 Blood Pressure 109/68 [Right] O2 Sat by Pulse 96 97 98 Oximetry 03/01/21 03/01/21 03/01/21 19:15 19:17 19:19 Temperature Pulse Rate 106 H 110 H 105 H Respiratory 23 17 15 Rate Blood Pressure 115/56 115/56 115/56 Blood Pressure [Right] O2 Sat by Pulse 98 98 99 Oximetry 03/01/21 03/01/21 03/01/21 19:21 19:23 19:25 Temperature Pulse Rate 109 H 103 H 106 H Respiratory 15 20 21 Rate Blood Pressure 88/61 88/61 133/57 Blood Pressure [Right] O2 Sat by Pulse 100 100 100 Oximetry 03/01/21 03/01/21 03/01/21 19:26 19:27 19:29 Temperature Pulse Rate 106 H 102 H 102 H Respiratory 18 13 22 Rate Blood Pressure 133/57 133/57 133/57 Blood Pressure [Right] O2 Sat by Pulse 99 100 100 Oximetry 03/01/21 03/01/21 03/01/21 19:31 19:32 19:33 Temperature Pulse Rate 95 H 94 H Respiratory 18 20 Rate Blood Pressure 122/75 122/75 Blood Pressure [Right] O2 Sat by Pulse 100 100 100 Oximetry 03/01/21 03/01/21 03/01/21 19:35 19:37 19:39 Temperature Pulse Rate 94 H 94 H 94 H Respiratory 18 18 18 Rate Blood Pressure 122/75 122/75 122/75 Blood Pressure [Right] O2 Sat by Pulse 100 100 100 Oximetry 03/01/21 03/01/21 03/01/21 19:41 19:43 19:45 Temperature Pulse Rate 94 H 99 H 95 H Respiratory 17 12 17 Rate Blood Pressure 122/75 122/75 122/75 Blood Pressure [Right] O2 Sat by Pulse 100 100 100 Oximetry 03/01/21 03/01/21 03/01/21 19:47 19:49 19:50 Temperature Pulse Rate 92 H 94 H 93 H Respiratory 17 17 17 Rate Blood Pressure 122/75 122/75 126/87 Blood Pressure [Right] O2 Sat by Pulse 100 100 100 Oximetry 03/01/21 03/01/21 03/01/21 19:51 19:53 19:55 Temperature Pulse Rate 94 H 92 H 93 H Respiratory 19 17 16 Rate Blood Pressure 126/87 126/87 130/85 Blood Pressure [Right] O2 Sat by Pulse 100 100 100 Oximetry 03/01/21 03/01/21 03/01/21 19:56 19:57 19:59 Temperature Pulse Rate 90 89 93 H Respiratory 16 18 17 Rate Blood Pressure 130/85 130/85 130/85 Blood Pressure [Right] O2 Sat by Pulse 100 100 100 Oximetry 03/01/21 03/01/21 03/01/21 20:00 20:01 20:03 Temperature Pulse Rate 95 H 96 H 102 H Respiratory 15 17 21 Rate Blood Pressure 140/80 140/80 140/80 Blood Pressure [Right] O2 Sat by Pulse 100 100 100 Oximetry 03/01/21 03/01/21 03/01/21 20:05 20:07 20:09 Temperature Pulse Rate 126 H 131 H 112 H Respiratory 23 28 H 19 Rate Blood Pressure 140/80 140/80 140/80 Blood Pressure [Right] O2 Sat by Pulse 97 92 96 Oximetry 03/01/21 03/01/21 03/01/21 20:11 20:13 20:15 Temperature Pulse Rate 106 H 107 H 97 H Respiratory 33 H 15 17 Rate Blood Pressure 129/59 129/59 113/70 Blood Pressure [Right] O2 Sat by Pulse 97 96 98 Oximetry 03/01/21 03/01/21 03/01/21 20:16 20:17 20:19 Temperature Pulse Rate 97 H 99 H 96 H Respiratory 16 15 17 Rate Blood Pressure 113/70 113/70 113/70 Blood Pressure [Right] O2 Sat by Pulse 98 98 98 Oximetry 03/01/21 03/01/21 03/01/21 20:21 20:23 20:25 Temperature Pulse Rate 96 H 95 H 97 H Respiratory 16 17 17 Rate Blood Pressure 140/71 140/71 141/77 Blood Pressure [Right] O2 Sat by Pulse 98 97 97 Oximetry 03/01/21 03/01/21 03/01/21 20:27 20:29 20:30 Temperature Pulse Rate 97 H 85 84 Respiratory 19 14 15 Rate Blood Pressure 141/77 141/77 131/73 Blood Pressure [Right] O2 Sat by Pulse 97 97 94 Oximetry 03/01/21 03/01/21 03/01/21 20:31 20:33 20:35 Temperature Pulse Rate 95 H 87 86 Respiratory 18 11 L 15 Rate Blood Pressure 131/73 131/73 125/67 Blood Pressure [Right] O2 Sat by Pulse 92 97 97 Oximetry 03/01/21 03/01/21 03/01/21 20:36 20:37 20:39 Temperature Pulse Rate 87 88 98 H Respiratory 14 11 L 17 Rate Blood Pressure 125/67 125/67 125/67 Blood Pressure [Right] O2 Sat by Pulse 97 98 98 Oximetry 03/01/21 03/01/21 03/01/21 20:41 20:43 20:45 Temperature Pulse Rate 90 88 87 Respiratory 13 17 14 Rate Blood Pressure 125/84 125/84 122/74 Blood Pressure [Right] O2 Sat by Pulse 99 100 100 Oximetry 03/01/21 03/01/21 03/01/21 20:46 20:47 20:49 Temperature Pulse Rate 87 90 88 Respiratory 15 13 14 Rate Blood Pressure 122/74 122/74 122/74 Blood Pressure [Right] O2 Sat by Pulse 100 100 100 Oximetry 03/01/21 03/01/21 03/01/21 20:51 20:52 20:53 Temperature Pulse Rate 89 90 93 H Respiratory 16 15 19 Rate Blood Pressure 114/61 114/61 114/61 Blood Pressure [Right] O2 Sat by Pulse 100 100 98 Oximetry 03/01/21 03/01/21 03/01/21 20:54 20:55 20:57 Temperature Pulse Rate 89 89 89 Respiratory 13 13 13 Rate Blood Pressure 121/69 121/69 Blood Pressure [Right] O2 Sat by Pulse 100 96 98 Oximetry 03/01/21 03/01/21 03/01/21 20:59 21:00 21:01 Temperature Pulse Rate 89 90 88 Respiratory 17 14 15 Rate Blood Pressure 121/69 116/68 116/68 Blood Pressure [Right] O2 Sat by Pulse 99 98 98 Oximetry 03/01/21 03/01/2121 21:03 21:05 21:06 Temperature Pulse Rate 100 H 94 H 95 H Respiratory 17 20 12 Rate Blood Pressure 116/68 119/68 119/68 Blood Pressure [Right] O2 Sat by Pulse 98 99 98 Oximetry 03/01/21 03/01/21 03/01/21 21:07 21:09 21:11 Temperature Pulse Rate 104 H 92 H 90 Respiratory 18 13 14 Rate Blood Pressure 119/68 119/68 121/70 Blood Pressure [Right] O2 Sat by Pulse 98 97 98 Oximetry 03/01/21 03/01/21 03/01/21 21:13 21:15 21:16 Temperature Pulse Rate 93 H 94 H 89 Respiratory 13 18 16 Rate Blood Pressure 121/70 124/65 124/65 Blood Pressure [Right] O2 Sat by Pulse 98 98 98 Oximetry 03/01/21 03/01/21 03/01/21 21:17 21:19 21:21 Temperature Pulse Rate 92 H 91 H 92 H Respiratory 15 15 15 Rate Blood Pressure 124/65 124/65 106/64 Blood Pressure [Right] O2 Sat by Pulse 98 98 98 Oximetry 03/01/21 03/01/21 21:23 22:42 Temperature Pulse Rate 96 H 98 H Respiratory 11 L 20 Rate Blood Pressure 106/64 Blood Pressure 126/74 [Right] O2 Sat by Pulse 99 100 Oximetry - Reevaluation(s) Reevaluation #1: 03/01/21 19:15 I called by the nurse to the room patient is having massive upper GI bleed. Patient vomitus is a coffee ground emesis with clots. Estimated blood loss is approximately 3 pints. Patient became hypotensive and his oxygen oxygen saturation dropped to 82% and became confused and altered. Patient immediately suctioned and started on oxygen he is improving to 96%. Uncrossed match blood has been immediately obtained and and start transfusion. Patient is started on Protonix and octreotide drip. Patient stated that he had history of liver cirrhosis secondary to alcohol. Reevaluation #2: 03/01/21 19:20 Patient now is alert, oriented x3 and able to carry normal conversation. His blood pressure improved to 112/58. His current oxygen saturation is 97% on a nonrebreather. No more vomiting observed. An uncrossmatch blood has been transfusing with no problem. Reevaluation #3: 03/01/21 19:41 I discussed the patient with [facility] transfer soso. She stated that she will talk to the patient representative and the GI and she will call me back. Reevaluation #4: 03/01/21 21:50 Patient remained critical however his vital signs stable now. No more vomiting observed. Waiting for transport to [facility]. - Consultations Consultation #1: 03/01/21 19:27 I discussed the patient with Dr. Mccrary GI on-call. I informed about the patient and he advised to transfer patient to another hospital because patient will need possible GI lab tonight and we do not have that capability tonight. Consultation #2: 03/01/21 19:55 [facility] transfer soso called back with Dr. Dent GI on-call. stated that he will have the hepatology team to call me back. Consultation #3: 03/01/21 20:39 I discussed the patient with Dr. Chaney, hepatology at [facility]. He accepted the patient to be transfer for further management. ED Medical Decision Making - Lab Data Result diagrams: 03/01/21 18:07 03/01/21 18:07 Critical Care Time: Yes Critical care time in (mins) excluding proc time.: 60 Critical care attestation.: If time is entered above; I have spent that time in minutes in the direct care of this critically ill patient, excluding procedure time. ED Disposition Clinical Impression: Acute upper GI hemorrhage, Acute chest pain Disposition: DC/TX-70 ANOTHER TYPE HLTHCARE Is pt being admited?: No Condition: Stable Instructions: Chest Pain (ED) Referrals: PRIMARY CARE, [Primary Care Provider] - 3-5 Days
--- NOTE | 2021-03-01 18:31 | XRay Report ---
CHEST 1 VIEW 03/01/2021 6:05 PM INDICATION / CLINICAL INFORMATION: Chest Pain. COMPARISON: 07/03/18 FINDINGS: SUPPORT DEVICES: None. HEART / MEDIASTINUM: No significant abnormality. LUNGS / PLEURA: No significant pulmonary or pleural abnormality. No pneumothorax. ADDITIONAL FINDINGS: No significant additional findings. IMPRESSION: 1. No acute findings. No change. Signer Name: Natalya Valencia MD Signed: 03/01/2021 6:26 PM Workstation Name: [id number]
[2021-03-01 18:45] LABS: Basophils # (Auto) 0.1 K/mm3 (0.0-0.1); Basophils % (Auto) 0.9 % (0.0-1.8); Eosinophils # (Auto) 0.1 K/mm3 (0.0-0.4); Eosinophils % (Auto) 1.4 % (0.0-4.3); Hematocrit 28.1 % (35.5-45.6); Hemoglobin 9.6 gm/dl (11.8-15.2); Lymphocytes # (Auto) 0.8 K/mm3 (1.2-5.4); Lymphocytes % (Auto) 9.6 % (13.4-35.0); Mean Corpuscular HGB Conc 34 % (32-34); Mean Corpuscular Volume 90 fl (84-94); Monocytes # (Auto) 0.5 K/mm3 (0.0-0.8); Monocytes % (Auto) 5.3 % (0.0-7.3); Platelet Count 258 K/mm3 (140-440); Red Blood Count 3.13 M/mm3 (3.65-5.03); Red Cell Distribution Width 13.9 % (13.2-15.2)
[2021-03-01 18:52] LABS: INR 1.05 (0.87-1.13)
[2021-03-01 18:53] LABS: Partial Thromboplastin Time 30.3 Sec. (24.2-36.6)
[2021-03-01] MEDS ORDERED: ONDANSETRON 4 MG/2 ML INJ ONE (19:04)
[2021-03-01] MEDS ORDERED: PANTOPRAZOLE 40 MG INJ IV ONE ×2 (19:04→19:43)
[2021-03-01] MEDS ORDERED: SODIUM CHLORIDE 0.9% 1000 ML 2,000 ML ONE (19:05)
[2021-03-01] MEDS ORDERED: ONDANSETRON 4 MG/2 ML INJ IV ONE (19:11)
[2021-03-01] MEDS ORDERED: SODIUM CHLORIDE 0.9% 1000 ML 1,000 ML IV ONE (19:11)
[2021-03-01] MEDS ORDERED: OCTREOTIDE 500 MCG in SODIUM CHLORIDE 0.9% 100 ML IV ONE (19:15)
[2021-03-01] MEDS ORDERED: PANTOPRAZOLE 80 MG in SODIUM CHLORIDE 0.9% 100 ML IV ONE (19:15)
[2021-03-01 19:28] LABS: BUN/Creatinine Ratio 20; Blood Urea Nitrogen 24 mg/dL (9-20); Calcium 9.5 mg/dL (8.4-10.2); Hemolysis Index 4
[2021-03-01 19:30] LABS: Alanine Aminotransferase 14 units/L (7-56); Albumin 3.8 g/dL (3.9-5)
[2021-03-01 19:32] LABS: Bilirubin,Direct < 0.2 mg/dL (0-0.2)
[2021-03-01 22:44] VITALS: BP 126/74
--- NOTE | 2021-03-06 10:54 | Electrocardiograph Report ---
[facility] Test Date: 2021-03-01 Test Time: 18:06:13 Pat Name: ROSAS HODGES Department: Room: Gender: M [employer] Consultant: ALEX : 1955 Requested By: ANNA WEST Order Number: [id number] Reading MD: Connor Moore Measurements Intervals [place] Rate: 93 P: 21 TX: 124 QRS: 15 QRSD: 70 T: 261 QT: 308 QTc: 383 Interpretive Statements Sinus rhythm. Non specific ST-T changes noted in inferolateral leads. No previous ECG available for comparison Electronically Signed On 03-06-2021 10:54:27 EDT by Connor Moore
== END 2021-03-01 22:42 | disposition other institution (70) ==
LOC: ED 17:35
DX: K92.2 Gastrointestinal hemorrhage, unspecified (principal); R07.89 Other chest pain; I10 Essential (primary) hypertension; E11.9 Type 2 diabetes mellitus without complications; F20.9 Schizophrenia, unspecified; F31.9 Bipolar disorder, unspecified; Z87.891 Personal history of nicotine dependence; Z79.899 Other long term (current) drug therapy
CPT/HCPCS: 36415; 36430; 71045; 80048; 80076; 82140; 83690; 83880; 84484; 85025; 85610; 85730; 86850; 86900; 86901; 86920; 93005; 96365; 96366; 96368; 96375; 96376; 99291; C9113; J2405; J7030; P9016; J2354

== ENCOUNTER 2021-06-30 08:54 | Emergency (ER) | payer MEDICARE ==
--- NOTE | 2021-06-30 10:44 | XRay Report ---
ABDOMEN 1 VIEW(S) INDICATION / CLINICAL INFORMATION: No BM x2 weeks. COMPARISON: None available. FINDINGS: TUBES / LINES: None. BOWEL GAS PATTERN/EXTRALUMINAL GAS: No acute findings. Moderate constipation. No pneumatosis or secon yoko signs of free air. ADDITIONAL FINDINGS: No significant additional findings. IMPRESSION: 1. Moderate constipation without acute abnormality Signer Name: Huy Adame MD Signed: 06/30/2021 10:39 AM Workstation Name: [id number]
[2021-06-30] MEDS ORDERED: LACTULOSE 20 GM/30 ML ORAL LIQD PO ONE (10:54)
[2021-06-30 10:56] LABS: Basophils # (Auto) 0.1 K/mm3 (0.0-0.1); Basophils % (Auto) 0.9 % (0.0-1.8); Eosinophils # (Auto) 0.2 K/mm3 (0.0-0.4); Eosinophils % (Auto) 2.7 % (0.0-4.3); Hematocrit 35.2 % (35.5-45.6); Hemoglobin 11.9 gm/dl (11.8-15.2); Lymphocytes # (Auto) 1.3 K/mm3 (1.2-5.4); Lymphocytes % (Auto) 22.7 % (13.4-35.0); Mean Corpuscular HGB Conc 34 % (32-34); Mean Corpuscular Volume 87 fl (84-94); Monocytes # (Auto) 0.4 K/mm3 (0.0-0.8); Monocytes % (Auto) 6.5 % (0.0-7.3); Platelet Count 379 K/mm3 (140-440); Red Blood Count 4.03 M/mm3 (3.65-5.03); Red Cell Distribution Width 14.2 % (13.2-15.2)
[2021-06-30 11:01] LABS: Alanine Aminotransferase 10 units/L (7-56); Albumin 4.4 g/dL (3.9-5); BUN/Creatinine Ratio 13; Blood Urea Nitrogen 14 mg/dL (9-20); Calcium 9.3 mg/dL (8.4-10.2); Hemolysis Index 7
--- NOTE | 2021-06-30 11:41 | Emergency Department Report ---
HPI - General Chief Complaint: Abdominal Pain Time Seen by Provider: 06/30/21 10:44 - HPI HPI: MSE 3 The patient is a 58-year-old male present with a chief complaint of constipation. Patient presents with a chief complaint of abdominal pain and constipation. Patient states he normally has a bowel movement every 3 days but has not had a bowel movement in the past 2 weeks. There is been no nausea vomiting. Patient currently denies abdominal pain stating that it comes and goes. The patient also acknowledges he has had gradual loss of vision since April 2020. Patient states he is able to see light but everything looks blurry/cloudy from both eyes. ED Past Medical Hx - Past Medical History Hx Hypertension: Yes Hx Diabetes: Yes Hx Psychiatric Treatment: Yes Additional medical history: depression. bipolar. Schizophrenia. Strabismus - Surgical History Additional Surgical History: Surgery for strabismus - Family History Family history: no significant - Social History Smoking Status: Current Some Day Smoker (Occasional) Substance Use Type: None (Denies illicit drug) - Medications Home Medications: Home Medications Medication Instructions Recorded Confirmed Last Taken Type AtorvaSTATin [Lipitor] 20 mg PO QHS #30 tablet 07/06/18 06/30/21 Unknown Rx FLUoxetine HCL [Fluoxetine HCl] 10 mg PO QAM #30 capsule 07/06/18 06/30/21 Unknown Rx Losartan Potassium 100 mg PO DAILY #30 tablet 07/06/18 06/30/21 Unknown Rx amLODIPine 10 mg PO QDAY@2200 #30 tablet 07/06/18 06/30/21 Unknown Rx cloNIDine [Catapres] 0.1 mg PO BID #60 tablet 07/06/18 06/30/21 Unknown Rx hydrALAZINE [Apresoline TAB] 50 mg PO BID 30 Days tablet 07/06/18 06/30/21 Unknown Rx risperiDONE [RisperiDONE] 4 mg PO QHS 30 Days #30 tablet 07/06/18 06/30/21 Unknown Rx traZODone [Desyrel] 10 mg PO QHS #30 tablet 07/06/18 06/30/21 Unknown Rx Docusate Sodium [Colace] 100 mg PO BID PRN #30 capsule 06/30/21 Unknown Rx Lactulose [Cephulac] 20 gm PO QDAY PRN #90 ml 06/30/21 Unknown Rx Lisinopril 10 mg PO QDAY 06/30/21 06/30/21 Unknown History ED Review of Systems ROS: Stated complaint: CANT SEE/NO BM [id number] Other details as noted in HPI Constitutional: no symptoms reported Eyes: vision change. denies: eye pain ENT: denies: throat pain Respiratory: no symptoms reported Cardiovascular: denies: chest pain Endocrine: no symptoms reported Gastrointestinal: abdominal pain, constipation. denies: nausea, vomiting Genitourinary: denies: dysuria Musculoskeletal: denies: back pain Neurological: denies: headache Physical Exam - Physical Exam Vital Signs: Vital Signs 06/30/21 09:19 Temperature 98.5 F Pulse Rate 83 Respiratory 20 Rate Blood Pressure 160/83 O2 Sat by Pulse 98 Oximetry Physical Exam: GENERAL: The patient is well-developed well-nourished male lying in wheelchair not appearing to be in acute distress HEENT: Normocephalic. Atraumatic. Extraocular motions are intact. Strabismus present. No red reflex seen bilaterally. No hyphema, no hypopyon NECK: Supple. Trachea midline CHEST/LUNGS: Clear to auscultation. There is no respiratory distress noted. HEART/CARDIOVASCULAR: Regular. There is no tachycardia. There is no gallop rub or murmur. ABDOMEN: Abdomen is soft, nontender. Patient has normal bowel sounds. There is no abdominal distention. SKIN: There is no rash. There is no edema. There is no diaphoresis. NEURO: The patient is awake, alert, and oriented. The patient is cooperative. The patient has no focal neurologic deficits. The patient has normal speech. GCS 15 MUSCULOSKELETAL: There is no evidence of acute injury. RECTAL: No fecal impaction ED Course Vital Signs 06/30/21 09:19 Temperature 98.5 F Pulse Rate 83 Respiratory 20 Rate Blood Pressure 160/83 O2 Sat by Pulse 98 Oximetry ED Medical Decision Making - Lab Data Result diagrams: 06/30/21 10:27 06/30/21 10:27 - Radiology Data Radiology results: report reviewed (Abdominal x-ray), image reviewed (Abdominal x-ray) interpreted by me: Abdominal [id number], no air-fluid levels. No free air [facility] [address] [place] [address] XRay Report Signed Patient: RSOAS HODGES MR# : [id number] : 1955 Acct:[id number] Age/Sex: 66 / M ADM Date: 06/30/21 Loc: ED Attending Dr: Ordering Physician: STEVEN ELLIS Date of Service: 06/30/21 Procedure(s): XR abdomen 1V ap Accession Number(s): [id number] cc: STEVEN ELLIS Fluoro Time In Minutes: ABDOMEN 1 VIEW(S) INDICATION / CLINICAL INFORMATION: No BM x2 weeks. COMPARISON: None available. FINDINGS: TUBES / LINES: None. BOWEL GAS PATTERN/EXTRALUMINAL GAS: No acute findings. Moderate constipation. No pneumatosis or secondary signs of free air. ADDITIONAL FINDINGS: No significant additional findings. IMPRESSION: 1. Moderate constipation without acute abnormality Signer Name: Huy Adame MD Signed: 06/30/2021 10:39 AM Workstation Name: [id number] Transcribed By: NORBERTO Dictated By: Huy Adame MD Electronically Authenticated By: Huy Adame MD Signed Date/Time: 06/30/21 103 DD/ 1039 TD/TT: Print Cancel - Differential Diagnosis Constipation, fecal impaction, cataracts Critical care attestation.: If time is entered above; I have spent that time in minutes in the direct care of this critically ill patient, excluding procedure time. ED Disposition Clinical Impression: Constipation, Cataract of both eyes Disposition: 01 HOME / SELF CARE / HOMELESS Is pt being admited?: No Does the pt Need Aspirin: No Condition: Stable Instructions: Cataract, Constipation, Adult Additional Instructions: Return to the emergency department should you develop worsening symptoms, inability to tolerate food or liquids, high fever or any other concerns Prescriptions: Lactulose [Cephulac] 20 gm PO QDAY PRN #90 ml PRN Reason: Constipation Docusate Sodium [Colace] 100 mg PO BID PRN #30 capsule PRN Reason: Constipation Referrals: MIRTHA CABRERA MD [Primary Care Provider] - 3-5 Days SAMAN COOLEY MD [Staff Physician] - 3-5 Days Time of Disposition: 14:40
[2021-06-30 12:29] VITALS: BP 184/95
[2021-06-30 12:56] LABS: Bilirubin,Urine NEG (Negative); Blood,Urine NEG (Negative); Color,Urine Yellow (Yellow); Mucus,Urine FEW /HPF; Protein,Urine <15 mg/dL mg/dL (Negative); Urobilinogen,Urine < 2.0 mg/dL (<2.0); WBC,Urine < 1.0 /HPF (0.0-6.0)
== END 2021-06-30 15:08 | disposition home or self-care (01) ==
LOC: ED 08:54
DX: K59.00 Constipation, unspecified (principal); H26.9 Unspecified cataract; I10 Essential (primary) hypertension; E11.9 Type 2 diabetes mellitus without complications
CPT/HCPCS: 36415; 74018; 80053; 81001; 83735; 84100; 85025; 99283

== ENCOUNTER 2021-07-09 01:04 | Emergency (ER) | payer MEDICARE ==
[2021-07-09 01:34] VITALS: BP 159/87
[2021-07-09] MEDS ORDERED: SODIUM CHLORIDE 0.9% 1000 ML 1,000 ML IV ONE (02:04)
--- NOTE | 2021-07-09 02:11 | Emergency Department Report ---
HPI - General Chief Complaint: Abdominal Pain Time Seen by Provider: 07/09/21 01:55 - HPI HPI: 66-year-old -Citizen Of [place] male presents to the emergency department, with his [id number] at bedside providing information, with complaint of constipation and abdominal pain. The patient was seen here on 06/30 for similar symptoms. At that time he had mostly unremarkable labs, a normal-appearing abdominal x-ray, and was discharged home with lactulose and Colace. He has been taking these medications without much relief. Initially, after discharge, the patient had a few bowel movements, but his [id number] says that he is now gone about 8 days without having a bowel movement and the abdominal pain is increasing. He has a past medical history of some level of mental delay, and the patient is blind. He has an appointment coming up to establish care with a PCP, Sanjeev Cabrera. They have not yet been able to see gastroenterology until they establish care with a PCP. ED Past Medical Hx - Past Medical History Hx Hypertension: Yes Hx Diabetes: Yes Hx Psychiatric Treatment: Yes Hx HIV: No Additional medical history: depression. bipolar. Schizophrenia. Strabismus - Surgical History Additional Surgical History: Surgery for strabismus - Social History Smoking Status: Current Some Day Smoker (Occasional) Substance Use Type: None (Denies illicit drug) - Medications Home Medications: Home Medications Medication Instructions Recorded Confirmed Last Taken Type AtorvaSTATin [Lipitor] 20 mg PO QHS #30 tablet 07/06/18 06/30/21 Unknown Rx FLUoxetine HCL [Fluoxetine HCl] 10 mg PO QAM #30 capsule 07/06/18 06/30/21 Unknown Rx Losartan Potassium 100 mg PO DAILY #30 tablet 07/06/18 06/30/21 Unknown Rx amLODIPine 10 mg PO QDAY@2200 #30 tablet 07/06/18 06/30/21 Unknown Rx cloNIDine [Catapres] 0.1 mg PO BID #60 tablet 07/06/18 06/30/21 Unknown Rx hydrALAZINE [Apresoline TAB] 50 mg PO BID 30 Days tablet 07/06/18 06/30/21 Un known Rx risperiDONE [RisperiDONE] 4 mg PO QHS 30 Days #30 tablet 07/06/18 06/30/21 Unknown Rx traZODone [Desyrel] 10 mg PO QHS #30 tablet 07/06/18 06/30/21 Unknown Rx Docusate Sodium [Colace] 100 mg PO BID PRN #30 capsule 06/30/21 Unknown Rx Lactulose [Cephulac] 20 gm PO QDAY PRN #90 ml 06/30/21 Unknown Rx Lisinopril 10 mg PO QDAY 06/30/21 06/30/21 Unknown History ED Review of Systems ROS: Stated complaint: ABD PAIN/HARD TO SWALLOW/BODYACHES Other details as noted in HPI Comment: All other systems reviewed and negative Constitutional: denies: chills, fever Eyes: denies: eye pain, vision change ENT: denies: ear pain, throat pain Respiratory: denies: cough, shortness of breath Cardiovascular: denies: chest pain, palpitations Gastrointestinal: abdominal pain, constipation. denies: vomiting Genitourinary: denies: dysuria, discharge Musculoskeletal: denies: back pain, arthralgia Skin: denies: rash, lesions Neurological: denies: headache, weakness Physical Exam - Physical Exam Vital Signs: Vital Signs 07/09/21 01:25 Temperature 98.5 F Pulse Rate 79 Respiratory 17 Rate Blood Pressure 159/87 [Right] O2 Sat by Pulse 98 Oximetry Physical Exam: GENERAL: The patient is well-developed well-nourished. HENT: Normocephalic. Atraumatic. Patient has moist mucous membranes. EYES: Extraocular motions are intact. NECK: Supple. Trachea is midline. CHEST/LUNGS: Clear to auscultation. There is no respiratory distress noted. HEART/CARDIOVASCULAR: Regular. There is no tachycardia. There is no murmur. ABDOMEN: Abdomen is soft. Mild generalized abdominal tenderness to palpation. No guarding. Patient has normal bowel sounds. There is no abdominal distention. SKIN: Skin is warm and dry. NEURO: The patient is awake, alert, and cooperative. Normal speech. MUSCULOSKELETAL: There is no tenderness or deformity. There is no limitation range of motion. ED Course Vital Signs 07/09/21 01:25 Temperature 98.5 F Pulse Rate 79 Respiratory 17 Rate Blood Pressure 159/87 [Right] O2 Sat by Pulse 98 Oximetry ED Medical Decision Making - Lab Data Result diagrams: 07/09/21 02:44 07/09/21 02:44 Lab Results 07/09/21 07/09/21 Range/Units 02:44 02:44 WBC 4.4 L (4.5-11.0) K/mm3 RBC 4.30 (3.65-5.03) M/mm3 Hgb 12.7 (11.8-15.2) gm/dl Hct 37.6 (35.5-45.6) % MCV 88 (84-94) fl MCH 30 (28-32) pg MCHC 34 (32-34) % RDW 14.2 (13.2-15.2) % Plt Count 334 (140-440) K/mm3 Lymph % (Auto) 25.8 (13.4-35.0) % [place]arton % (Auto) 6.5 (0.0-7.3) % Eos % (Auto) 2.2 (0.0-4.3) % Baso % (Auto) 1.3 (0.0-1.8) % Lymph # (Auto) 1.1 L (1.2-5.4) K/mm3 [place]arton # (Auto) 0.3 (0.0-0.8) K/mm3 Eos # (Auto) 0.1 (0.0-0.4) K/mm3 Baso # (Auto) 0.1 (0.0-0.1) K/mm3 Seg Neutrophils % 64.2 (40.0-70.0) % Seg Neutrophils # 2.8 (1.8-7.7) K/mm3 Sodium 138 (137-145) mmol/L Potassium 3.9 (3.6-5.0) mmol/L Chloride 96.5 L (98-107) mmol/L Carbon Dioxide 27 (22-30) mmol/L Anion Gap 18 mmol/L BUN 12 (9-20) mg/dL Creatinine 1.2 (0.8-1.3) mg/dL Estimated GFR > 60 ml/min BUN/Creatinine Ratio 10 % Glucose 87 (75-100) mg/dL Calcium 9.8 (8.4-10.2) mg/dL Total Bilirubin 0.20 (0.1-1.2) mg/dL Direct Bilirubin < 0.2 (0-0.2) mg/dL Indirect Bilirubin 0.0 mg/dL AST 16 (5-40) units/L ALT 11 (7-56) units/L Alkaline Phosphatase 62 (35-129) units/L Total Protein 7.2 (6.3-8.2) g/dL Albumin 4.5 (3.9-5) g/dL Albumin/Globulin Ratio 1.7 % Lipase 39 (13-60) units/L - Radiology Data Radiology results: report reviewed CT ABDOMEN AND PELVIS WITH CONTRAST INDICATION / CLINICAL INFORMATION: Abdominal pain, 8 days of constipation. TECHNIQUE: Axial CT images were obtained through the abdomen and pelvis after 100 mL Omnipaque [address] scans at this location are performed using CT dose reduction for ALARA by means of automated exposure control. COMPARISON: Radiograph dated 06/30/21 FINDINGS: LOWER CHEST: No significant abnormality. LIVER: No significant abnormality. GALLBLADDER: No significant abnormality. BILE DUCTS: No significant abnormality. PANCREAS: No significant abnormality. SPLEEN: No significant abnormality. A DRENALS: No significant abnormality. RIGHT KIDNEY / URETER: No significant abnormality. LEFT KIDNEY / URETER: No significant abnormality. STOMACH / SMALL BOWEL: Small sliding-type hiatal hernia. No small bowel abnormality. COLON: Moderate to large amount of fecal material throughout the colon. APPENDIX: No significant abnormality. PERITONEUM: No free fluid. No free air. No fluid collection. LYMPH NODES: No significant adenopathy. AORTA / ARTERIES: Mild atherosclerotic calcification without acute abnormality. IVC / VEINS: No significant abnormality. URINARY BLADDER: No significant abnormality. REPRODUCTIVE ORGANS: No significant abnormality. ADDITIONAL FINDINGS: None. SKELETAL SYSTEM: No significant abnormality. IMPRESSION: 1. Moderate to large amount of fecal material throughout the colon possibly representing constipation. - Medical Decision Making This patient presents to the emergency department with an 8-day history of constipation and a 1 day history of abdominal pain. The abdomen is soft, nondistended and nontoxic in appearance. He has normal bowel sounds to auscultation. There is some reproducible generalized abdominal tenderness to palpation. Labs have been unremarkable including CBC, metabolic panel, lipase. He had a CT scan of the abdomen and pelvis with IV contrast that shows moderate to large amount of stool volume concerning for constipation, but there is no obstruction, solid organ inflammation/infection, or any other acute process. Vital signs reassuring throughout his ED course including being afebrile. The patient has a history of some type of mental delay and schizophrenia. After discussing all of this with his [id number], the patient's complaints this afternoon may also be behavioral. The patient was seen multiple times resting comfortably in no acute distress. He has an appointment to establish care with primary care tomorrow. He has been given an outpatient referral for gastroenterology. We discussed starting on MiraLAX. We discussed dietary changes to help with the constipation. He will return to the emergency department with any worsening of his symptoms or with any acute distress. Critical Care Time: No Critical care attestation.: If time is entered above; I have spent that time in minutes in the direct care of this critically ill patient, excluding procedure time. ED Disposition Clinical Impression: Constipation Hypertension Qualifiers: Hypertension type: primary hypertension Qualified Code(s): I10 - Essential (primary) hypertension Abdominal pain Qualifiers: Abdominal location: unspecified location Qualified Code(s): R10.9 - Unspecified abdominal pain Disposition: HOME / SELF CARE / HOMELESS Is pt being admited?: No Condition: Stable Instructions: Abdominal Pain, Adult, Constipation, Adult, Hypertension, Adult, Hypertension (ED) Additional Instructions: Please follow-up with Dr. Cabrera tomorrow as previously scheduled. I have also given you a referral for [facility] to follow-up regarding his abdominal pains and constipation. As we discussed, switch to MiraLAX. Continue to make sure that he is staying hydrated. Try to avoid constipating foods such as dairy products, bananas. Return to the emergency department with any worsening of your symptoms, new or concerning symptoms not addressed during this current emergency department visit, or with any acute distress. Referrals: SANJEEV CABRERA MD [Primary Care Provider] - 07/10/21 [facility] [Provider Group] - 3-5 Days Time of Disposition: 04:54
[2021-07-09 03:18] LABS: Basophils # (Auto) 0.1 K/mm3 (0.0-0.1); Basophils % (Auto) 1.3 % (0.0-1.8); Eosinophils # (Auto) 0.1 K/mm3 (0.0-0.4); Eosinophils % (Auto) 2.2 % (0.0-4.3); Hematocrit 37.6 % (35.5-45.6); Hemoglobin 12.7 gm/dl (11.8-15.2); Lymphocytes # (Auto) 1.1 K/mm3 (1.2-5.4); Lymphocytes % (Auto) 25.8 % (13.4-35.0); Mean Corpuscular HGB Conc 34 % (32-34); Mean Corpuscular Volume 88 fl (84-94); Monocytes # (Auto) 0.3 K/mm3 (0.0-0.8); Monocytes % (Auto) 6.5 % (0.0-7.3); Platelet Count 334 K/mm3 (140-440); Red Cell Distribution Width 14.2 % (13.2-15.2)
[2021-07-09 03:46] LABS: Alanine Aminotransferase 11 units/L (7-56); Albumin 4.5 g/dL (3.9-5); BUN/Creatinine Ratio 10; Blood Urea Nitrogen 12 mg/dL (9-20); Calcium 9.8 mg/dL (8.4-10.2); Hemolysis Index 15
[2021-07-09 04:12] LABS: Bilirubin,Direct < 0.2 mg/dL (0-0.2)
--- NOTE | 2021-07-09 04:34 | Cat Scan Report ---
CT ABDOMEN AND PELVIS WITH CONTRAST INDICATION / CLINICAL INFORMATION: Abdominal pain, 8 days of constipation. TECHNIQUE: Axial CT images were obtained through the abdomen and pelvis after 100 mL Omnipaque [address] scans at this location are performed using CT dose reduction for ALARA by means of automated exposure control. COMPARISON: Radiograph dated 06/30/21 FINDINGS: LOWER CHEST: No significant abnormality. LIVER: No significant abnormality. GALLBLADDER: No significant abnormality. BILE DUCTS: No significant abnormality. PANCREAS: No significant abnormality. SPLEEN: No significant abnormality. ADRENALS: No significant abnormality. RIGHT KIDNEY / URETER: No significant abnormality. LEFT KIDNEY / URETER: No significant abnormality. STOMACH / SMALL BOWEL: Small sliding-type hiatal hernia. No small bowel abnormality. COLON: Moderate to large amount of fecal material throughout the colon. APPENDIX: No significant abnormality. PERITONEUM: No free fluid. No free air. No fluid collection. LYMPH NODES: No significant adenopathy. AORTA / ARTERIES: Mild atherosclerotic calcification without acute abnormality. IVC / VEINS: No significant abnormality. URINARY BLADDER: No significant abnormality. REPRODUCTIVE ORGANS: No significant abnormality. ADDITIONAL FINDINGS: None. SKELETAL SYSTEM: No significant abnormality. IMPRESSION: 1. Moderate to large amount of fecal material throughout the colon possibly representing constipation . Signer Name: Natalya Valencia MD Signed: 07/09/2021 4:30 AM Workstation Name: [id number]
== END 2021-07-09 05:05 | disposition home or self-care (01) ==
LOC: ED 01:04
DX: K59.00 Constipation, unspecified (principal); R10.84 Generalized abdominal pain; E11.9 Type 2 diabetes mellitus without complications; F17.200 Nicotine dependence, unspecified, uncomplicated; F20.9 Schizophrenia, unspecified
CPT/HCPCS: 36415; 74177; 80048; 80076; 83690; 85025; 96360; 96361; 99284; J7030; Q9967